=== PATIENT | female | born 1955 | race Asian ===

== ENCOUNTER 2024-03-01 17:42 | Inpatient (IN) | payer OTHER, SELFPAY ==
[2024-03-01] VITALS (11 sets, daily range): BP systolic 92–126; BP diastolic 56–79; BMI 22.9; BMI 23.0
--- NOTE | 2024-03-01 09:10 | EDRN ---
Gladys CHOE in room w/ pt at this time.
--- NOTE | 2024-03-01 09:16 | ED.GENMED ---
History of Present Illness
General
Chief Complaint: Flank Pain
Source: patient and family
Exam Limitations: none
Time Seen by Provider: 03/01/24 08:59
Nursing documentation reviewed up to this point in time: agreed with
History of Present Illness
History of Present Illness:
pt is a 68 y/o F with (origincally told me no medical problems but then admitted to being told about PCKD AND PCLD in the past, not followed by GI)
says that on 02/25 evening she started with fever and nausea
vomited the following day
t max 103
went to urgent care 02/27 after still having fever and vomiting
they did not check her urine, but checked her for flu/covid which were neg
gave her tylenol, loratadine, and zofran. pt says she started feeling r sided abdominal pain on 02/27 evening and has had pain i nher RUQ/RLQ since which is worse with omvement; also with continued nauesa and anorexia
slightly looser stools x 2 weeks
no previous surgery
last vomited last night
Past History
Past History
ED Past Medical History: None
ED Past Surgical History: None
Social History
Tobacco: Non-smoker
Alcohol: Occasional
Drug: None
Personal:
Living: with family
Review of Systems
Review of Systems
Allergies reviewed?: Yes
All Other Systems: Not applicable
Phy Exam
Physical Exam
Physical Exam:
GENERAL: Alert , in no apparent distress
EYE: pupils equal and reactive
NECK: Supple
ENT: o/p clr, mmm.
CARDIAC: Regular rate and rhythm .
LUNGS: Clear breath sounds bilaterally, no acute respiratory distress, no wheezes/rales/rhonchi
ABDOMEN: Soft, mild RUQ tenderness, no r/g, no cvat, normal bowel sounds
NEUROLOGICAL: Alert and oriented, no focal neuro deficits
SKIN: Warm and dry, skin intact.
MUSCULOSKELETAL: No edema, well perfused. neg eloise's sign
PSYCH: Normal and appropriate interaction.
Course
Orders/Labs/Results
Orders:
Orders
03/01/24 09:00
IV Insert/Care/Rem.- Treatment PRN
03/01/24 09:09
Complete Blood Count/With Diff Urgent
Comprehensive Metabolic Panel Urgent
Lipase Urgent
Comment: ADD ON
Monotest Urgent
Comment: ADD ON
Urinalysis Reflex To Culture Urgent
Date Specimen was Collected: 03/01/24
Time Specimen was Collected: 09:02
Urine Microscopic Reflex Cult Urgent
Urine Culture Urgent
HELGA Source: U
Specimen Description:
Date Specimen was Collected: 03/01/24
Time Specimen was Collected: 09:02
03/01/24 09:14
0.9% Sodium Chloride 1000 ml [Nss] 1,000 ml IV BOLUS
Iohexol [Omnipaque] See Protocol PO NOW STA
Ondansetron Injectable [Zofran] 4 mg IV NOW STA
03/01/24 09:15
Add On- LAB Urgent
Tests Added?: lipase
03/01/24 09:19
US Abdomen Complete/Upper Urgent
Comment:
Reason For Exam: R sided abd pain, fever, vomiting
03/01/24 11:29
CT Abd/pel W Iv And Oral Contr Urgent
Comment:
Reason For Exam: R abd pain, fever; already drinking contrast
03/01/24 11:30
Add On- LAB Urgent
Tests Added?: mono
03/01/24 13:00
CefTRIAXone [Rocephin] 1,000 mg IV NOW STA
Abnormal Lab Results
03/01/24
09:09
WBC 15.4 H 10^3/uL
(4.8-10.8)
RBC 3.90 L 10^6/uL
(4.20-5.40)
Hct 34.9 L %
(37.0-47.0)
Abs Immat Gran (auto) 0.1 H 10^3/uL
(0-0.05)
Absolute Neuts (auto) 12.6 H 10^3/uL
(1.4-6.5)
Absolute Lymphs (auto) 1.1 L 10^3/uL
(1.2-3.4)
Absolute Monos (auto) 1.5 H 10^3/uL
(0.1-0.6)
Immature Gran % 0.8 H %
(0-0.5)
Neutrophils % 82.1 H %
(42.2-75.2)
Lymphocytes % 7.2 L %
(20.5-51.1)
Monocytes % 9.8 H %
(1.7-9.3)
Sodium 134 L mmol/L
(135-145)
BUN 20 H mg/dl
(7-17)
Glucose 119 H mg/dl
(70-99)
Total Bilirubin 1.5 H mg/dl
(0.2-1.3)
AST 79 H U/L
(14-36)
ALT 117 H U/L
(0-35)
Alkaline Phosphatase 273 H U/L
(38-126)
Albumin 3.3 L g/dl
(3.5-5.0)
Urine Ketones Trace A
(Negative)
Ur Occult Blood Reflex 4+ A
(Negative)
Urine Bilirubin 1+ A
(Negative)
Urine Urobilinogen 2+ A
(Neg - 1+)
Leukocyte Esterase Rfl 1+ A
(Negative)
Urine RBC 3-6 A /HPF
(0-2)
Urine Bacteria (Reflex) Moderate A
(Negative)
03/01/24 09:09
03/01/24 09:09
Vital Signs
Initial and Last Documented VS:
Initial Vital Signs
Temp Pulse Resp BP Pulse Ox
98.8 F 88 16 109/72 98
03/01/24 08:14 03/01/24 08:14 03/01/24 08:14 03/01/24 08:14 03/01/24 08:14
Last Documented Vital Signs
Temp Pulse Resp BP Pulse Ox
98.8 F 78 14 104/63 97
03/01/24 08:14 03/01/24 14:25 03/01/24 14:25 03/01/24 14:25 03/01/24 14:25
MDM/Problems Addressed
Differential Diagnosis Includes:
PYELO, appe, west, cholangitis, choledocho, kidney stone
MDM/Problems Addressed:
68 y/o F
was previously told age 52 of PCKD and PCLD
here with fever 4 days ago x 2 days, n/v and r sided abd pain
no urinary symptoms
minimally tender RUQ no brewer's sign
wbc 13, left shift
transaminitis, alk phos 290
US shows normal CBD, multiple liver and kidney cysts, no hydro
CT also the same, no appe
urine with blood/bili/leuk/wbc, so pt could have uti/pyelo clinically with fever, right flank pain, vomiting and + ua
admit for IV abx and trending of lfts; if worse, maybe needs MRCP;
*Critical Care Note
Total Time (30-74mins, 75-104mins- exclusive of procedures): Not Applicable
ED Attending Note
-
Portions of this chart may have been created with voice recognition software.� Occasional wrong word or��sound alike� substitutions may have occurred due to the inherent limitations of voice recognition software.
Discharge Plan
Departure
Patient Disposition: Admit
Date of Disposition: 03/01/24
Time of Disposition: 13:04
Admit to: Med/Surg
Presentation/result/management discussed w/ accepting MD/DO: Hospitalist
Patient with high blood pressure during this ER visit?: No
Condition: Fair
Covid-19: Not Applicable
Discharge Problem:
Pyelonephritis, Transaminitis
Prescriptions:
No Action
Theragen Tablet
1 tab PO DAILY
acetaminophen 500 mg Tablet
500 mg PO Q6HPRN PRN (Reason: mild pain)
vitamin B complex Tablet
1 tab PO DAILY
ondansetron [Zofran ODT] 4 mg Tablet,Disintegrating
4 mg PO Q6HPRN PRN (Reason: nausea)
loratadine 10 mg Tablet
10 mg PO DAILYPRN PRN (Reason: allergy)
omega 1-rxc-qft-fish oil [Fish Oil] 1,000 mg (120 mg-180 mg) Capsule
1 cap PO DAILY
Referrals:
Miladis Ken MD [Family Provider] -
Interventions
Interventions:
*Risk Screen - Suicide Last Done: 03/01/24 09:10
*General Assessment Last Done: 03/01/24 09:10
*Neglect/Abuse Screening Last Done: 03/01/24 09:10
ED- Fall Risk Assessment Last Done: 03/01/24 09:10
VE-Ydowzj-Reerordiho Assessment Last Done: 03/01/24 09:27
ED-Female Genitourinary Assessment Last Done: 03/01/24 09:27
Discharge Date and Time
Print Language: CAPE VERDEAN
[2024-03-01 09:18] LABS: % Basophils 0.1 % (0-2); % Immature Granulocytes 0.8 % (0-0.5); % Lymphocytes 7.2 % (20.5-51.1); % Monocytes 9.8 % (1.7-9.3); % Neutrophils 82.1 % (42.2-75.2); Absolute Immature Granulocytes 0.1 10^3/uL (0-0.05); Absolute Lymphocytes 1.1 10^3/uL (1.2-3.4); Absolute Monocytes 1.5 10^3/uL (0.1-0.6); Absolute Neutrophils 12.6 10^3/uL (1.4-6.5); Hematocrit 34.9 % (37.0-47.0); Mean Corp Hgb Conc. 34.4 g/dL (33.0-37.0); Mean Corpuscular Hgb 30.8 pg (27.0-31.0); Mean Corpuscular Volume 89.5 fL (81.0-99.0); Mean Platelet Volume 10.4 fL (7.4-10.4); Nucleated Red Blood Cells % 0 %; Platelet Count 240 10^3/uL (130-400); Red Cell Dist. Width 14.3 % (11.5-14.5); White Blood Cell Count 15.4 10^3/uL (4.8-10.8)
[2024-03-01 09:20] LABS: Urine Albumin Trace (Neg - Trace); Urine Bilirubin 1+ (Negative); Urine Character Clear (Clear); Urine Color Yellow; Urine Glucose Negative (Negative); Urine Ketone Trace (Negative); Urine Leukocyte 1+ (Negative); Urine Nitrite Negative (Negative); Urine Occult Blood 4+ (Negative); Urine Specific Gravity 1.015 (<1.030); Urine Urobilinogen 2+ (Neg - 1+)
[2024-03-01 09:28] LABS: Urine Bacteria Moderate (Negative); Urine Mucus Few
[2024-03-01] MEDS: ZOFRAN 4 MG IV (09:43)
[2024-03-01] MEDS: NSS 1000 IV ×2 (09:43→18:29)
[2024-03-01] MEDS: OMNIPAQUE 50 ML PO (09:43)
[2024-03-01 10:02] LABS: ALT (SGPT) 117 U/L (0-35); AST (SGOT) 79 U/L (14-36); Albumin 3.3 g/dl (3.5-5.0); Alkaline Phosphatase 273 U/L (38-126); Blood Urea Nitrogen 20 mg/dl (7-17); Calcium 9.2 mg/dl (8.4-10.2); Carbon Dioxide 25 mmol/L (22-30); Chloride 101 mmol/L (98-107); Estimated Creatinine Clearance 44 ml/min; Glucose 119 mg/dl (70-99); Potassium 3.8 mmol/L (3.5-5.1); Sodium 134 mmol/L (135-145); Total Bilirubin 1.5 mg/dl (0.2-1.3); Total Protein 6.3 g/dl (6.3-8.2); eGFR > 60.00
[2024-03-01 10:08] LABS: Lipase 157 U/L (23-300)
--- NOTE | 2024-03-01 11:15 | EDRN ---
Pt remains in [facility] at this time.
--- NOTE | 2024-03-01 12:53 | EDRN ---
Gladys CHOE in room w/ pt at this time.
[2024-03-01] MEDS: ROCEPHIN 1000 MG IV (13:10)
[2024-03-01 13:19] LABS: Monotest Negative (Negative)
--- NOTE | 2024-03-01 14:10 | HPS.HSE ---
Family Physician
-
Family Physician: Miladis Ken
Chief Complaint
-
right flank pain
History of Present Illness
68 female Cantonese speaking, son David at bedside providing translation, semifluent in Beninese, presents with progressive right abdomen flank pain with intermittent associate fevers nausea vomiting. Reported Tmax at home 103. Vital signs stable
afebrile ED evaluation here. Leukocytosis noted with mild transaminitits. Bacteriuria noted in urinalysis. CT abdomen pelvis noted possible acute cystitis, severe polycystic liver disease, and moderate polycystic kidney disease. Patient reports
that the cysts are known to her, diagnosed years ago back in her 50s. Also notes the disease runs in her family. Reports that her current primary care provider is not aware of her cysts and that she is not currently following anyone for them.
Medical History
Past Medical History
Past Medical History: Reports Other (as above)
Past Surgical History: Reports Other (as above)
Social History
Tobacco: Non-smoker
Alcohol: Occasional
Drug: None
Personal:
Living: With Family
Family History
Family History: Other (History of Polycystic Liver and Kidney disease in family)
Allergies / Home Medications
Allergies reflects when Allergies were last updated in [employer].
Home Medications with original date entered in [employer]
Allergy/Medication List:
Allergies
Allergy/AdvReac Type Severity Reaction Status Date / Time
No Known Allergies Allergy Unverified 03/01/24 08:13
Home Medications
acetaminophen 500 mg tablet 500 mg PO Q6HPRN PRN mild pain 03/01/24
loratadine 10 mg tablet 10 mg PO DAILYPRN PRN allergy 03/01/24
omega 8-mkq-keu-fish oil 1,000 mg (120 mg-180 mg) capsule (Fish Oil) 1 cap PO DAILY 03/01/24
ondansetron 4 mg disintegrating tablet 4 mg PO Q6HPRN PRN nausea 03/01/24
therapeutic multivitamin 1 tab PO DAILY 03/01/24
vitamin B complex 1 tab PO DAILY 03/01/24
Review of Systems
-
A 12 point ROS was completed and negative except as noted: Yes
Constitutional: Reports Other (as below)
Physical Exam
Vital Signs
Vital Signs
Temp Pulse Resp BP Pulse Ox
98.8 F 77 16 126/70 97
03/01/24 08:14 03/01/24 13:00 03/01/24 13:00 03/01/24 13:00 03/01/24 13:00
Physical Exam
General: Other (as below)
Laboratory Results
-
03/01/24 09:09
03/01/24 09:09
Laboratory Results
Total Bilirubin 1.5 mg/dl (0.2-1.3) H 03/01/24 09:09
AST 79 U/L (14-36) H 03/01/24 09:09
ALT 117 U/L (0-35) H 03/01/24 09:09
Alkaline Phosphatase 273 U/L (38-126) H 03/01/24 09:09
Lipase 157 U/L (23-300) 03/01/24 09:09
Impression/Plan
-
ROS
General: Reports Fever
Neuro: Denies seizure shaking loss of consciousness dizziness vertigo
Psych: denies depression hallucinations confusion manic episodes
Endocrine: Denies polyuria polydipsia polyphagia heat/cold intolerance
HEENT: Denies blindness visual disturbances epistaxis
Pulmonary: denies coughing hemoptysis sneezing sob dyspnea on exertion
Cardiovascular: denies chest pain palpitations leg swelling
Hematology: denies signs symptoms of anemia easy bruising/bleeding
Gastrointestinal: reports Nausea vomiting
Genito-Urinary: denies retention incontinence dysuria
Musculoskeletal: Reports right flank pain
Dermatology: denies rash laceration bruising
Physical Exam
General: No pallor, cyanosis, or jaundice.
HEENT: Throat clear. PERRLA Normocephalic atraumatic
NECK: Supple. No JVD Carotid Bruits
RESPIRATORY: Lungs clear to auscultation. No crackles wheezes stridor
CVS: S1, S2 normal. RRR. No murmur, rub or gallop.
ABDOMEN: Soft, non-tender. No distension. BS+/normal.
EXTREMITIES: No peripheral cyanosis or edema.
MSWS: AOx3. No focal deficits.
IMPRESSION:
68 female Cantonese speaking, son David at bedside providing translation, semifluent in Beninese, presents with progressive right abdomen flank pain with intermittent associate fevers nausea vomiting. Reported Tmax at home 103. Vital signs stable
afebrile ED evaluation here. Leukocytosis noted with mild transaminitits. Bacteriuria noted in urinalysis. CT abdomen pelvis noted possible acute cystitis, severe polycystic liver disease, and moderate polycystic kidney disease. Patient reports
that the cysts are known to her, diagnosed years ago back in her 50s. Also notes the disease runs in her family. Reports that her current primary care provider is not aware of her cysts and that she is not currently following anyone for them.
Likely right Pyelonephritis, patient was started empirically on IV ceftriaxone.
PLAN:
#Complicated UTI
#Likely right pyelonephritis
MedSurg admit
Continue empiric antibiotic ceftriaxone
Follow urine culture
Pain control antiemetics
prn Tylenol
#Mild transaminitis
monitor LFTs
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
#Polycystic Liver Disease
#Polycsytic Kidney Disease
outpt follow up with GI and Nephrology recommended
Discussed with patient and patient's son David who provided Cantonese translation.
DVT ppx SCDs
I spent a total of 78 minutes with the patient or on the floor. More than 50% of this time involved counseling and coordination of care.
--- NOTE | 2024-03-01 15:37 | EDRN ---
Hospitalist in room w/ pt at this time.
[2024-03-01] MEDS: TYLENOL 500 MG PO (18:37)
--- NOTE | 2024-03-01 18:40 | PTCARENOTE ---
Pt. arrived from ED via stretcher. Pt. ambulated to bed with minimal assistance. Pt. states she fells hot. Pt. with fever of 101.9, Tylenol given as ordered. Pt. resting in bed comfortably at this time. Call deras within reach.
[2024-03-01] MEDS: MELATONIN 5 MG PO ×2 (21:33→23:24)
[2024-03-02] MEDS: TYLENOL 500 MG PO ×3 (03:25→19:04)
[2024-03-02 06:35] LABS: Hematocrit 29.2 % (37.0-47.0); Hemoglobin 10.4 g/dL (12.0-16.0); Mean Corp Hgb Conc. 35.6 g/dL (33.0-37.0); Mean Corpuscular Hgb 32.1 pg (27.0-31.0); Mean Corpuscular Volume 90.1 fL (81.0-99.0); Mean Platelet Volume 10.1 fL (7.4-10.4); Platelet Count 266 10^3/uL (130-400); Red Blood Cell Count 3.24 10^6/uL (4.20-5.40); Red Cell Dist. Width 14.1 % (11.5-14.5); White Blood Cell Count 15.6 10^3/uL (4.8-10.8)
[2024-03-02 07:01] LABS: ALT (SGPT) 79 U/L (0-35); AST (SGOT) 50 U/L (14-36); Albumin 2.5 g/dl (3.5-5.0); Alkaline Phosphatase 245 U/L (38-126); Blood Urea Nitrogen 11 mg/dl (7-17); Calcium 8.2 mg/dl (8.4-10.2); Carbon Dioxide 25 mmol/L (22-30); Chloride 103 mmol/L (98-107); Estimated Creatinine Clearance 57 ml/min; Glucose 116 mg/dl (70-99); Magnesium 2.1 mg/dl (1.6-2.3); Potassium 3.2 mmol/L (3.5-5.1); Sodium 135 mmol/L (135-145); Total Bilirubin 0.9 mg/dl (0.2-1.3); Total Protein 5.4 g/dl (6.3-8.2); eGFR > 60.00
--- NOTE | 2024-03-02 07:18 | W.PN.HOSP.TC ---
Today's Communication/Plan
-
cont empiric abx
follow urine culture
pain conrol
Tylenol prn
trend WBC
Assessment / Plan
Assessment / Plan
Physical Exam
General: No pallor, cyanosis, or jaundice.
HEENT: Throat clear. PERRLA Normocephalic atraumatic
NECK: Supple. No JVD Carotid Bruits
RESPIRATORY: Lungs clear to auscultation. No crackles wheezes stridor
CVS: S1, S2 normal. RRR. No murmur, rub or gallop.
ABDOMEN: Soft, right flank pain tenderness. No distension. BS+/normal.
EXTREMITIES: No peripheral cyanosis or edema.
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 No focal deficits.
IMPRESSION:
68 female Cantonese speaking, son David at bedside providing translation, semifluent in Belgian, presents with progressive right abdomen flank pain with intermittent associate fevers nausea vomiting. Reported Tmax at home 103. Vital signs stable
afebrile ED evaluation here. Leukocytosis noted with mild transaminitits. Bacteriuria noted in urinalysis. CT abdomen pelvis noted possible acute cystitis, severe polycystic liver disease, and moderate polycystic kidney disease. Patient reports
that the cysts are known to her, diagnosed years ago back in her 50s. Also notes the disease runs in her family. Reports that her current primary care provider is not aware of her cysts and that she is not currently following anyone for them.
Likely right Pyelonephritis, patient was started empirically on IV ceftriaxone.
PLAN:
#Complicated UTI
#Likely right pyelonephritis
Continue empiric antibiotic ceftriaxone
Follow urine culture
Pain control antiemetics
prn Tylenol
#Mild transaminitis
monitor LFTs
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
#Polycystic Liver Disease
#Polycsytic Kidney Disease
outpt follow up with GI and Nephrology recommended
PT eval appreciated no needs
DVT ppx SCDs
Discussed with patient and patient's son David who provided Cantonese translation.
I spent a total of 51 minutes with the patient or on the floor. More than 50% of this time involved counseling and coordination of care.
Anticipated Discharge: 24 - 48 hours
Subjective/Interval History
-
Date of Service: March 02, 2024
Reports overall improvement in symptoms. Continues to report flank pain on movement. White count remains elevated
Objective Data
-
Labs:
Laboratory Results
03/02/24
06:12
WBC 15.6 H
Hgb 10.4 L
Hct 29.2 L
Plt Count 266
Sodium 135
Potassium 3.2 L
Chloride 103
Carbon Dioxide 25
BUN 11
Creatinine 0.7
Glucose 116 H
Calcium 8.2 L
Total Bilirubin 0.9
AST 50 H
ALT 79 H
Alkaline Phosphatase 245 H
Vital Signs:
Vital Signs
Temp Pulse Resp BP Pulse Ox
99.7 F 80 18 105/63 96
03/02/24 03:19 03/01/24 23:33 03/01/24 23:33 03/01/24 23:33 03/01/24 23:33
I&O
03/01/24 03/02/24 03/03/24
06:59 06:59 06:59
Intake Total 960 / 960
Balance 960 / 960
[2024-03-02] MEDS: NSS 1000 IV ×2 (07:21→22:08)
[2024-03-02 07:40] VITALS: BP 101/62
[2024-03-02] MEDS: THERAGRAN 1 TABLET PO (09:00)
[2024-03-02] MEDS: KCL 40 MEQ PO (09:00)
[2024-03-02 11:05] VITALS: BP 120/72; PULSE 81; O2SAT 97
[2024-03-02] MEDS: STERILE WATER FOR INJECTION 10 ML IV (11:48)
[2024-03-02] MEDS: ROCEPHIN 1000 MG IV (11:48)
--- NOTE | 2024-03-02 12:21 | CM ---
Patient seen at bedside with son also present. Patient states via son translation that she is not interested in advance directive information. Patient son stated that patient lives with him. Patient states that she was not needing any DME prior to
admission. Patient son to transport home. Patient indicated that she was eager for discharge home.
Plan; home with no needs.
[2024-03-02 15:30] VITALS: BP 111/66
[2024-03-02] MEDS: DILAUDID 0.5 MG IV (20:17)
--- NOTE | 2024-03-02 20:30 | PTCARENOTE ---
Pt with R sd ABD pain and stating episode of diarrhea- medicated with IV dilaudid, pt stating relief.
[2024-03-02 23:42] VITALS: BP 98/61
[2024-03-03 01:22] VITALS: BP 108/66
[2024-03-03] MEDS: MOTRIN 400 MG PO (03:24)
[2024-03-03 07:46] VITALS: BP 117/66
[2024-03-03 08:01] LABS: Hematocrit 29.1 % (37.0-47.0); Hemoglobin 10.4 g/dL (12.0-16.0); Mean Corp Hgb Conc. 35.7 g/dL (33.0-37.0); Mean Corpuscular Hgb 31.5 pg (27.0-31.0); Mean Corpuscular Volume 88.2 fL (81.0-99.0); Mean Platelet Volume 10.1 fL (7.4-10.4); Platelet Count 330 10^3/uL (130-400); Red Cell Dist. Width 14.4 % (11.5-14.5); White Blood Cell Count 16.1 10^3/uL (4.8-10.8)
[2024-03-03] MEDS: THERAGRAN 1 TABLET PO (08:07)
[2024-03-03 08:22] LABS: ALT (SGPT) 69 U/L (0-35); AST (SGOT) 49 U/L (14-36); Albumin 2.5 g/dl (3.5-5.0); Alkaline Phosphatase 290 U/L (38-126); Blood Urea Nitrogen 9 mg/dl (7-17); Calcium 7.9 mg/dl (8.4-10.2); Carbon Dioxide 23 mmol/L (22-30); Chloride 106 mmol/L (98-107); Estimated Creatinine Clearance 66 ml/min; Glucose 114 mg/dl (70-99); Magnesium 2.1 mg/dl (1.6-2.3); Potassium 3.5 mmol/L (3.5-5.1); Sodium 135 mmol/L (135-145); Total Bilirubin 1.3 mg/dl (0.2-1.3); Total Protein 5.4 g/dl (6.3-8.2); eGFR > 60.00
[2024-03-03] MEDS: STERILE WATER FOR INJECTION 10 ML IV (12:03)
[2024-03-03] MEDS: ROCEPHIN 1000 MG IV (12:03)
[2024-03-03] MEDS: FLUSH (NSS) 1 FLUSH IV (12:06)
--- NOTE | 2024-03-03 12:12 | W.PN.HOSP.TC ---
Today's Communication/Plan
-
ID eval
abx for now
Assessment / Plan
Assessment / Plan
Physical Exam
General: No pallor, cyanosis, or jaundice.
HEENT: Throat clear. PERRLA Normocephalic atraumatic
NECK: Supple. No JVD Carotid Bruits
RESPIRATORY: Lungs clear to auscultation. No crackles wheezes stridor
CVS: S1, S2 normal. RRR. No murmur, rub or gallop.
ABDOMEN: Soft, right flank pain tenderness. No distension. BS+/normal.
EXTREMITIES: No peripheral cyanosis or edema.
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 No focal deficits.
IMPRESSION:
68 female Cantonese speaking, son David at bedside providing translation, semifluent in Ecuadorean, presents with progressive right abdomen flank pain with intermittent associate fevers nausea vomiting. Reported Tmax at home 103. Vital signs stable
afebrile ED evaluation here. Leukocytosis noted with mild transaminitits. Bacteriuria noted in urinalysis. CT abdomen pelvis noted possible acute cystitis, severe polycystic liver disease, and moderate polycystic kidney disease. Patient reports
that the cysts are known to her, diagnosed years ago back in her 50s. Also notes the disease runs in her family. Reports that her current primary care provider is not aware of her cysts and that she is not currently following anyone for them.
Likely right Pyelonephritis, patient was started empirically on IV ceftriaxone.
PLAN:
#sepsis -poa
Continue empiric antibiotic ceftriaxone as being treated for possible cystitis
Ua benign. Ucx negative.
No blood culture drawn
Spiking persistent fevers
CT abd/pelvis noted-mild diffuse urinary bladder wall thickening. Diagnostic possibilities are (1) acute cystitis or (2) under distention of the urinary bladder lumen.
no cough.
DC ivf.
Pain control antiemetics
prn Tylenol
#Mild transaminitis
monitor LFTs
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
#Transaminitis likely 2/2 Polycystic Liver Disease
#Polycsytic Kidney Disease
outpt follow up with GI and Nephrology recommended
#Hypokalemia
replete/monitor
PT eval appreciated no needs
DVT ppx SCDs
Anticipated Discharge: Within 24 hours
Subjective/Interval History
-
Date of Service: March 03, 2024
spiked fever earlier today
Objective Data
-
Labs:
Laboratory Results
03/03/24
06:52
WBC 16.1 H
Hgb 10.4 L
Hct 29.1 L
Plt Count 330 D
Sodium 135
Potassium 3.5
Chloride 106
Carbon Dioxide 23
BUN 9
Creatinine 0.6
Glucose 114 H
Calcium 7.9 L
Total Bilirubin 1.3
AST 49 H
ALT 69 H
Alkaline Phosphatase 290 H
Vital Signs:
Vital Signs
Temp Pulse Resp BP Pulse Ox
99.3 F 82 20 117/66 94
03/03/24 11:15 03/03/24 07:46 03/03/24 07:46 03/03/24 07:46 03/03/24 07:46
I&O
03/02/24 03/03/24 03/04/24
06:59 06:59 06:59
Intake Total 960 / 960 960 / 960
Balance 960 / 960 960 / 960
[2024-03-03 15:04] VITALS: BP 128/77
--- NOTE | 2024-03-03 15:35 | CON.ID ---
Consultation
-
Date/Time Consultation Requested: 03/03/2024 1230
Date/Time Consultation Performed: 03/03/2024 1511
Requesting Provider: Dr. Song
Performing Provider: Dr. Jimenez
Reason for Consultation: Fever
Chief Complaint / Past History
History of Present Illness
Gregory Gramajo is a 68-year-old female being evaluated at the request of Dr. Song in regards to fever. History is obtained from chart review, along with patient interview.
The patient presents to [facility] 03/01/2024 for right-sided abdominal pain. According to reviewed history she began to feel ill on 02/25 with nausea along with fever. The following day she recalls vomiting and developed a temperature to
103 degrees. On 02/27 she was seen at an urgent care and checked for flu and COVID, both of which were negative. She was prescribed Tylenol, loratadine and Zofran, but later that evening she began to have right-sided abdominal discomfort and has
had pain in her right upper quadrant and right lower quadrant since that time.
Workup in the emergency room revealed a leukocytosis, along with a transaminitis. Urine culture has been unrevealing. Infectious Diseases is asked to comment upon further antimicrobial therapy.
At present, she reports feeling well, but continues to have some right upper quadrant discomfort which she notes worsens with deep inspiration. She denies any dysuria or hematuria.
Past History
Additional Past Medical History:
PCKD
PCLD
Past Surgical History: None
Allergy History:
No Known Allergies Allergy (Unverified 03/01/24 08:13)
Medications Reviewed: Yes
Current Antibiotics:
Ceftriaxone 1 g IV every 24 hours
Social History
Tobacco: Non-Smoker
Alcohol: None
Drug: None
Living: With Family
Employment: Retired
Family History
Family History: Not Pertinent
Review of Systems
Vital Signs
Temp Pulse Resp BP Pulse Ox
99.3 F 82 20 117/66 94
03/03/24 11:15 03/03/24 07:46 03/03/24 07:46 03/03/24 07:46 03/03/24 07:46
Physical Exam
Physical Exam
Constitutional: No Acute Distress, Comfortable and Non-toxic
Eyes: No Conjunctival Hemorrhage and Sclera Anicteric
Oral: No Thrush and No Ulcers
Cardiovascular: Regular Rate and S1/S2; Negative S3/S4
Pulmonary: Clear; Negative Wheezes, Rales or Rhonchi
Gastrointestinal: Soft, Tender (minimal; RUQ), Non Distended, Normal Bowel Sounds, No Rebound and No Guarding
Extremities: Negative Edema, Cyanosis or Erythema
Skin: Warm and Dry; Negative Rash or Jaundice
Neurological: Awake and Alert
Psychological: Calm
Lab / Diagnostic Study Results
03/03/24 06:52
03/03/24 06:52
Abs Immat Gran (auto) 0.1 10^3/uL (0-0.05) H 03/01/24 09:09
Absolute Neuts (auto) 12.6 10^3/uL (1.4-6.5) H 03/01/24 09:09
Absolute Lymphs (auto) 1.1 10^3/uL (1.2-3.4) L 03/01/24 09:09
Absolute Monos (auto) 1.5 10^3/uL (0.1-0.6) H 03/01/24 09:09
Absolute Basos (auto) 0.0 10^3/uL (0-0.2) 03/01/24 09:09
Immature Gran % 0.8 % (0-0.5) H 03/01/24 09:09
Neutrophils % 82.1 % (42.2-75.2) H 03/01/24 09:09
Lymphocytes % 7.2 % (20.5-51.1) L 03/01/24 09:09
Monocytes % 9.8 % (1.7-9.3) H 03/01/24 09:09
Eosinophils % 0.0 % (0-6) 03/01/24 09:09
Basophils % 0.1 % (0-2) 03/01/24 09:09
Ur Squamous Epith Cells 3-5 /LPF (Few) 03/01/24 09:09
Microbiology Results
Micro:
03/01/24 09:09 Urine Culture - Final
Urine No Significant Growth
Imaging:
03/01/2024 Abdominal ultrasound: Polycystic liver and kidney noted. No convincing sonographic evidence for cholelithiasis or acute cholecystitis. There is an echogenic right hepatic lobe lesion likely representing a benign lesion such as hemangioma.
03/01/2024 CT abdomen and pelvis with IV and oral contrast: There is severe polycystic liver disease, with mild to moderate hepatomegaly. Moderate polycystic kidney disease is noted. Mild diffuse urinary bladder wall thickening. Small amount of
peritoneal fluid in the pelvis. Please see full dictation for additional detail.
Assessment / Plan
Right upper quadrant pain
Fever
Leukocytosis
Transaminitis
Suspected acalculous cholecystitis versus ascending cholangitis (transient)
Polycystic liver disease
Polycystic kidney disease
Recommendations:
Continue with ceftriaxone for now.
Follow white count and temperature curve.
Blood cultures x 2 for temperature greater than 100.5 degrees.
May consider HIDA scan if abdominal discomfort persists.
Trend LFTs
[2024-03-03 16:41] VITALS: BMI 23.0
[2024-03-03] MEDS: TYLENOL 500 MG PO (20:02)
[2024-03-03 23:50] VITALS: BP 124/77
[2024-03-04] MEDS: MOTRIN 400 MG PO (04:26)
[2024-03-04 06:59] VITALS: BP 112/64
[2024-03-04 07:22] LABS: Hematocrit 28.8 % (37.0-47.0); Hemoglobin 10.2 g/dL (12.0-16.0); Mean Corp Hgb Conc. 35.4 g/dL (33.0-37.0); Mean Corpuscular Hgb 31.2 pg (27.0-31.0); Mean Corpuscular Volume 88.1 fL (81.0-99.0); Mean Platelet Volume 9.7 fL (7.4-10.4); Platelet Count 429 10^3/uL (130-400); Red Blood Cell Count 3.27 10^6/uL (4.20-5.40); Red Cell Dist. Width 14.2 % (11.5-14.5); White Blood Cell Count 14.1 10^3/uL (4.8-10.8)
[2024-03-04 07:57] LABS: ALT (SGPT) 73 U/L (0-35); AST (SGOT) 54 U/L (14-36); Albumin 2.7 g/dl (3.5-5.0); Alkaline Phosphatase 363 U/L (38-126); Blood Urea Nitrogen 8 mg/dl (7-17); Carbon Dioxide 27 mmol/L (22-30); Chloride 102 mmol/L (98-107); Glucose 95 mg/dl (70-99); Potassium 3.8 mmol/L (3.5-5.1); Sodium 135 mmol/L (135-145); Total Bilirubin 1.4 mg/dl (0.2-1.3)
[2024-03-04 08:11] LABS: Estimated Creatinine Clearance 66 ml/min; Magnesium 2.2 mg/dl (1.6-2.3); Total Protein 5.9 g/dl (6.3-8.2); eGFR > 60.00
[2024-03-04] MEDS: THERAGRAN 1 TABLET PO (09:11)
--- NOTE | 2024-03-04 11:11 | W.PN.HOSP.TC ---
Addendum entered and electronically signed by Haseeb Song MD 03/04/24 17:40:
Discussed case in detail with infectious disease. Patient's been tolerating diet. Patient with severe cyst on the liver and under renal bilateral. Explains patient's symptoms. Patient has remained afebrile so far this morning and afternoon.
Patient eager insisting on going home. Plan will be to transition to p.o. cefdinir and DC patient. Patient cultures so far been negative. This was discussed with patient's son in detail he was agreeable and amenable to discharge planning home.
Also recommend patient's son for patient to be evaluated at a tertiary care center like [facility] and [facility] for cystic lesion of kidney and liver. Also recommended patient send to be evaluated for cystic
lesion as as family history.
More than 30 minutes spent in discharge including
Final examination of the patient
Summarizing hospital stay
Instructions for continuing care to all relevant caregivers
Preparation of discharge records, prescriptions, and referral forms
Total time spent (in minutes): 52
Original Note:
Today's Communication/Plan
-
Await further blood cultures
Monitor temperature and fever curve
WBC downtrending
ID recs
Assessment / Plan
Assessment / Plan
Physical Exam
General: No pallor, cyanosis, or jaundice.
HEENT: Throat clear. PERRLA Normocephalic atraumatic
NECK: Supple. No JVD Carotid Bruits
RESPIRATORY: Lungs clear to auscultation. No crackles wheezes stridor
CVS: S1, S2 normal. RRR. No murmur, rub or gallop.
ABDOMEN: Soft, right flank pain tenderness. No distension. BS+/normal.
EXTREMITIES: No peripheral cyanosis or edema.
HARVEST MANAGER: AOx3. No focal deficits.
IMPRESSION:
68 female Cantonese speaking, son David at bedside providing translation, semifluent in Polish, presents with progressive right abdomen flank pain with intermittent associate fevers nausea vomiting. Reported Tmax at home 103. Vital signs stable
afebrile ED evaluation here. Leukocytosis noted with mild transaminitits. Bacteriuria noted in urinalysis. CT abdomen pelvis noted possible acute cystitis, severe polycystic liver disease, and moderate polycystic kidney disease. Patient reports
that the cysts are known to her, diagnosed years ago back in her 50s. Also notes the disease runs in her family. Reports that her current primary care provider is not aware of her cysts and that she is not currently following anyone for them.
Likely right Pyelonephritis, patient was started empirically on IV ceftriaxone.
PLAN:
#sepsis -poa
Continue empiric antibiotic ceftriaxone as being treated for possible cystitis
Ua benign. Ucx negative.
No blood culture drawn
Spiking persistent fevers
CT abd/pelvis noted-mild diffuse urinary bladder wall thickening. Diagnostic possibilities are (1) acute cystitis or (2) under distention of the urinary bladder lumen.
no cough.
DC ivf.
Blood culture ordered.
?infection kidney cyst however, CT abdomen pelvis was negative.
mild improvement in wbc.
Pain control antiemetics
prn Tylenol
#Mild transaminitis likely 2/2 Polycystic Liver Disease
monitor LFTs
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
#Transaminitis likely 2/2 Polycystic Liver Disease
#Polycsytic Kidney Disease
outpt follow up with GI and Nephrology recommended
#Hypokalemia
replete/monitor
PT eval appreciated no needs
DVT ppx SCDs
d/w with son over the phone in details
Anticipated Discharge: > 48 hours
Subjective/Interval History
-
Date of Service: March 04, 2024
States improvement in RUQ pain
spiked fever last night and earlier this am
no nausea or vomiting or cough
no dysuria
Objective Data
-
Labs:
Laboratory Results
03/04/24
06:09
WBC 14.1 H
Hgb 10.2 L
Hct 28.8 L
Plt Count 429 H D
Sodium 135
Potassium 3.8
Chloride 102
Carbon Dioxide 27
BUN 8
Creatinine 0.6
Glucose 95
Calcium 8.0 L
Total Bilirubin 1.4 H
AST 54 H
ALT 73 H
Alkaline Phosphatase 363 H
Vital Signs:
Vital Signs
Temp Pulse Resp BP Pulse Ox
97.9 F 83 20 112/64 96
03/04/24 06:59 03/04/24 06:59 03/04/24 06:59 03/04/24 06:59 03/04/24 06:59
I&O
03/03/24 03/04/24 03/05/24
06:59 06:59 06:59
Intake Total 960 / 960 920 / 920
Balance 960 / 960 920 / 920
[2024-03-04] MEDS: ROCEPHIN 1000 MG IV (14:15)
[2024-03-04] MEDS: STERILE WATER FOR INJECTION 10 ML IV (14:15)
[2024-03-04 15:17] VITALS: BP 129/77
--- NOTE | 2024-03-04 16:37 | CM ---
CM met with patient and several family members at bedside. Gregory and her family advised that she was able to return home with son without any services or needs.
Plan: Discharge to home with no needs.
--- NOTE | 2024-03-04 17:13 | W.PN.ID1 ---
Date of Service
Date of Service: March 04, 2024
Today's Communication
Narrow to cefdinir.
Assessment / Plan
Right upper quadrant pain
Fever
Leukocytosis
Transaminitis
Suspected acalculous cholecystitis versus ascending cholangitis (transient)
Polycystic liver disease
Polycystic kidney disease
Recommendations:
Cultures negative thus far although intermittent fevers noted.
Follow white count and temperature curve.
Trend LFTs
Transition to oral therapy and observe closely.
Case discussed with Hospitalist Service. Given findings on CAT scan, patient likely needs follow-up at a tertiary care center.
����������������������������������������������������������
Chief Complaint
-: Fever
Subjective / Review of Systems
Patient seen and examined. Reports overall feeling improved today. Reports resolution of right upper quadrant discomfort.
Vital Signs / Physical Exam
Vital Signs
Vital Signs
Temp Pulse Resp BP Pulse Ox
98.4 F 84 20 129/77 96
03/04/24 15:17 03/04/24 15:17 03/04/24 15:17 03/04/24 15:17 03/04/24 15:17
Physical Exam
Constitutional: No Acute Distress, Comfortable and Non-toxic
Eyes: No Conjunctival Hemorrhage and Sclera Anicteric
Cardiovascular: S1/S2; Negative S3/S4
Pulmonary: Clear and Non Labored
Gastrointestinal: Soft, Non Tender, Non Distended and Normal Bowel Sounds
Extremities: Negative Edema or Cyanosis
Neurological: Awake and Alert
Psychological: Calm
Objective Data
Lab Data
Lab Results
03/04/24 06:09
03/04/24 06:09
Estimated Creat Clear 66 ml/min 03/04/24 06:09
Total Bilirubin 1.4 mg/dl (0.2-1.3) H 03/04/24 06:09
AST 54 U/L (14-36) H 03/04/24 06:09
ALT 73 U/L (0-35) H 03/04/24 06:09
Alkaline Phosphatase 363 U/L (38-126) H 03/04/24 06:09
Most recent labs reviewed.
Micro Results:
03/04/24 10:25 Blood Culture - Pending
Blood/Venous
03/04/24 08:33 Blood Culture - Pending
Blood/Venous
03/01/24 09:09 Urine Culture - Final
Urine No Significant Growth
Imaging:
03/01/2024 Abdominal ultrasound: Polycystic liver and kidney noted. No convincing sonographic evidence for cholelithiasis or acute cholecystitis. There is an echogenic right hepatic lobe lesion likely representing a benign lesion such as hemangioma.
03/01/2024 CT abdomen and pelvis with IV and oral contrast: There is severe polycystic liver disease, with mild to moderate hepatomegaly. Moderate polycystic kidney disease is noted. Mild diffuse urinary bladder wall thickening. Small amount of
peritoneal fluid in the pelvis. Please see full dictation for additional detail.
Care Review
Plan reviewed with: Physician (Hospitalist)
--- NOTE | 2024-03-04 17:42 | W.DCSUMMARY ---
Discharge Summary
Discharge Data
Date of Admission: 03/01/24
Date of Discharge: 03/04/24
-
Pending Results: No
Hospital Course
68-year-old female past medical history of polycystic bilateral kidney disease and liver disease problem is presented with fever and right-sided abdominal pain. Patient underwent CT abdomen pelvis which showed severe polycystic liver disease and
mild to moderate hepatomegaly. Moderate polycystic kidney disease. Mild diffuse urinary bladder wall thickening. Diagnostic possibilities are (1) acute cystitis or (2) under distention of the urinary bladder lumen. Patient urinary was benign and
urine culture was negative for growth. Blood cultures preliminary was negative. Patient was started on ceftriaxone. Infectious disease was consulted. Patient was tolerating diet. WBC was improving. Fever curve mildly improved. Patient stated
right-sided abdominal pain resolved. Patient blood pressure was stable. Patient without any nausea or vomiting and was tolerating diet without any difficulty. Patient was insisting on going home. Discussed case with infectious disease and plan
agreed to transition patient off ceftriaxone to p.o. cefdinir. Also recommended for patient and family to be followed and managed and to get evaluated to tertiary care center for polycystic kidney and liver disease. This was relayed to patient's
son and recommended follow-up at [facility] and clinic information was also provided. Patient son verbalized understanding.
Discharge Plan
-
Patient Disposition: Home (Routine Discharge)
Discharge Diagnosis/Procedures: Pyelonephritis, Polycystic Liver Disease, Polycystic Kidney Disease, suspect Autosomal Dominant Polycystic Liver Disease
sepsis
Condition: Fair
Diet: Low Fat
Activity: With assistance and As tolerated
Driving Restrictions: Not until seen by your Dr
Activity Restrictions/Additional Instructions:
Recommend to be seen at a tertiary care center-[facility] (call [phone] Polycystic kidney clinic to make appointment) or [facility] for polycystic liver and kidney disease.
Referrals:
Armando Robledo MD [Active] - in two to four weeks
Miladis Ken MD [Family Provider] - in one week
Kandice Britton MD [Active] - in two to four weeks
Prescriptions:
New
cefdinir 300 mg capsule
300 mg PO BID Qty: 10 0RF
Continued
therapeutic multivitamin Tablet
1 tab PO DAILY
acetaminophen 500 mg Tablet
500 mg PO Q6HPRN PRN (Reason: mild pain)
vitamin B complex Tablet
1 tab PO DAILY
ondansetron 4 mg Tablet,Disintegrating
4 mg PO Q6HPRN PRN (Reason: nausea)
loratadine 10 mg Tablet
10 mg PO DAILYPRN PRN (Reason: allergy)
omega [id number] oil [Fish Oil] 1,000 mg (120 mg-180 mg) Capsule
1 cap PO DAILY
melatonin 10 mg Tablet
10 mg PO HS PRN (Reason: sleep)
Rx Instructions:
pt states 5 mg or 10 mg tablet PRN
Discharge Orders:
Discharge Patient (As Directed); Ordered 03/04/24
Ordered By: Haseeb Song
Discharge Date and Time
Print Language: JAPANESE
== END 2024-03-04 18:56 | disposition home or self-care (01) | DRG 872 ==
LOC: 4 EAST ACU 17:42
PROVIDERS: Physician Assistant; ADMITTING PHYSICIAN Internal Medicine; ATTENDING PHYSICIAN Hospitalist; CONSULT PHYSICIAN Internal Medicine Infectious Disease; EMERGENCY PHYSICIAN Emergency Medicine; FAMILY PHYSICIAN Internal Medicine
DX: A41.9 Sepsis, unspecified organism (principal); N12 Tubulo-interstitial nephritis, not specified as acute or chronic; Q61.2 Polycystic kidney, adult type; Q44.6 Cystic disease of liver; R74.01 Elevation of levels of liver transaminase levels; E87.6 Hypokalemia
CPT/HCPCS: 74177; 76700; 80053; 81003; 81015; 83690; 83735; 85025; 85027; 86308; 87040; 87086; 93005; 96361; 96374; 96375; 97161; 99285; Q9967